=== PATIENT | male | born 1980 | race Caucasian/White ===

== ENCOUNTER 2018-04-09 14:34 | Emergency (ER) | payer OTHER ==
[2018-04-09 14:46] VITALS: TEMP 97.8
[2018-04-09] MEDS ORDERED: HYDROmorphone 1 MG/ML 1 ML SYRINGE IVP STA ×2 (15:02→17:17)
[2018-04-09] MEDS ORDERED: SODIUM CHLORIDE 0.9% 1,000 ML IV STA (15:02)
[2018-04-09] MEDS ORDERED: ONDANSETRON 4 MG/2 ML VIAL IVP STA (15:02)
--- NOTE | 2018-04-09 15:04 | ED ---
General Adult HPI - General Chief complaint: Abdominal Pain Stated complaint: Abd pain Time Seen by Provider: 04/09/18 14:58 Source: patient, RN notes reviewed Mode of arrival: ambulatory Limitations: no limitations - History of Present Illness Initial comments: Patient is a 37-year-old male presenting to the emergency room today with a chief complaint of right upper quadrant abdominal pain over the last few days. He does admit that it is worse after he eats. Patient does admit to a sharp pain located in the right upper quadrant. Patient doesn't feeling nauseated. Denies any vomiting. Patient denies any recent fever, chills, shortness of breath, chest pain, back pain, vomiting, numbness or tingling, headaches or visual changes, or any other complaints. - Related Data Previous Rx's Medication Instructions Recorded Omeprazole 20 mg PO DAILY #20 capsule. 04/09/18 Ondansetron Odt [Zofran ODT] 4 mg PO Q8HR PRN #20 tab 04/09/18 Sucralfate [Carafate] 1 gm PO BID 10 Days tablet 04/09/18 Allergies Allergy/AdvReac Type Severity Reaction Status Date / Time sulfamethoxazole Allergy Unknown Verified 04/09/18 14:46 [From Bactrim] trimethoprim [From Bactrim] Allergy Unknown Verified 04/09/18 14:46 Review of Systems ROS Statement: Those systems with pertinent positive or pertinent negative responses have been documented in the HPI. ROS Other: All systems not noted in ROS Statement are negative. Past Medical History Past Medical History: No Reported History History of Any Multi-Drug Resistant Organisms: None Reported Past Surgical History: Bariatric Surgery Past Psychological History: Anxiety, Depression Smoking Status: Never smoker Past Alcohol Use History: Rare Past Drug Use History: None Reported General Exam - General Exam Comments Initial Comments: General: The patient is awake and alert, in no distress, and does not appear acutely ill. Eye: There is normal conjunctiva bilaterally. No signs of icterus. Ears, nose, mouth and throat: There are moist mucous membranes and no oral lesions. Neck: The neck is supple, there is no tenderness or JVD. Cardiovascular: There is a regular rate and rhythm. No murmur, rub or gallop is appreciated. Respiratory: Lungs are clear to auscultation, respirations are non-labored, breath sounds are equal. No wheezes, stridor, rales, or rhonchi. Gastrointestinal: Abdomen soft on palpation. Patient does have mild tender epigastric with increased tenderness to the right upper quadrant. No rebound, guarding or CVA tenderness. Musculoskeletal: Normal ROM, no tenderness. Neurological: A&O x 3. CN II-XII intact, There are no obvious motor or sensory deficits. Coordination appears grossly intact. Speech is normal. Skin: Skin is warm and dry and no rashes or lesions are noted. Psychiatric: Cooperative, appropriate mood & affect, normal judgment. Limitations: no limitations Course Vital Signs 04/09/18 14:43 Temperature 97.8 F Pulse Rate 104 H Respiratory 18 Rate Blood Pressure 160/90 O2 Sat by Pulse 100 Oximetry Medical Decision Making - Medical Decision Making Patient's labs been reviewed. Patient's ultrasound does show evidence for adenomyomatosis of the gallbladder. No sign for acute cholecystitis. Patient symptoms consistent with biliary colic. Advised following up with general surgeon. Patient will be given Zofran, omeprazole, Carafate for symptoms. He is advised to return if any symptoms increase or worsen. States understanding and is in agreement. - Lab Data Result diagrams: 04/09/18 15:09 04/09/18 15:09 Lab Results 04/09/18 04/09/18 04/09/18 Range/Units 15: 15: 16:34 WBC 7.2 (3.8-10.6) k/uL RBC 5.65 (4.30-5.90) m/uL Hgb 15.9 (13.0-17.5) gm/dL Hct 48.4 (39.0-53.0) % MCV 85.6 (80.0-100.0) fL MCH 28.1 (25.0-35.0) pg MCHC 32.8 (31.0-37.0) g/dL RDW 13.1 (11.5-15.5) % Plt Count 204 (150-450) k/uL Neutrophils % 71 % Lymphocytes % 12 % Monocytes % 11 % Eosinophils % 4 % Basophils % 1 % Neutrophils # 5.1 (1.3-7.7) k/uL Lymphocytes # 0.9 L (1.0-4.8) k/uL Monocytes # 0.8 (0-1.0) k/uL Eosinophils # 0.3 (0-0.7) k/uL Basophils # 0.1 (0-0.2) k/uL Sodium 142 (137-145) mmol/L Potassium 4.2 (3.5-5.1) mmol/L Chloride 108 H (98-107) mmol/L Carbon Dioxide 27 (22-30) mmol/L Anion Gap 7 mmol/L BUN 14 (9-20) mg/dL Creatinine 0.92 (0.66-1.25) mg/dL Est GFR (CKD-EPI)AfAm >90 (>60 ml/min/1.73 sqM) Est GFR (CKD-EPI)NonAf >90 (>60 ml/min/1.73 sqM) Glucose 79 (74-99) mg/dL Calcium 8.7 (8.4-10.2) mg/dL Total Bilirubin 0.5 (0.2-1.3) mg/dL AST 34 (17-59) U/L ALT 38 (21-72) U/L Alkaline Phosphatase 44 (38-126) U/L Total Protein 6.7 (6.3-8.2) g/dL Albumin 3.9 (3.5-5.0) g/dL Amylase 54 (30-110) U/L Lipase 143 (23-300) U/L Urine Color Yellow Urine Appearance Clear (Clear) Urine pH 5.5 (5.0-8.0) Ur Specific [place] 1.011 (1.001-1.035) Urine Protein Negative (Negative) Urine Glucose (UA) Negative (Negative) Urine Ketones Negative (Negative) Urine Blood Negative (Negative) Urine Nitrite Negative (Negative) Urine Bilirubin Negative (Negative) Urine Urobilinogen <2.0 (<2.0) mg/dL Ur Leukocyte Esterase Negative (Negative) Disposition Clinical Impression: Abdominal pain Disposition: HOME SELF-CARE Condition: Good Instructions: Abdominal Pain (ED) Additional Instructions: Please use medication as discussed. Please follow-up with surgeon/family doctor in the next 2 days of symptoms have not improved. Please return to emergency room if the symptoms increase or worsen or for any other concerns. Prescriptions: Omeprazole 20 mg PO DAILY #20 capsule. Ondansetron Odt [Zofran ODT] 4 mg PO Q8HR PRN #20 tab PRN Reason: Nausea Sucralfate [Carafate] 1 gm PO BID 10 Days tablet Is patient prescribed a controlled substance at d/c from ED?: No Referrals: Dinesh Murphy MD [Primary Care Provider] - 1-2 days Kellen Vidal DO [Doctor of Osteopathic Medicine] - 1-2 days Time of Disposition: 17:14
[2018-04-09 15:26] LABS: Basophils # (A) 0.1 k/uL (0-0.2); Basophils % (A) 1 %; Eosinophils # (A) 0.3 k/uL (0-0.7); Eosinophils % (A) 4 %; HCT 48.4 % (39.0-53.0); HGB 15.9 gm/dL (13.0-17.5); Lymphocytes # (A) 0.9 k/uL (1.0-4.8); Lymphocytes % (A) 12 %; MCH 28.1 pg (25.0-35.0); MCHC 32.8 g/dL (31.0-37.0); MCV 85.6 fL (80.0-100.0); Mean Platelet Volume 6.2; Monocytes # (A) 0.8 k/uL (0-1.0); Monocytes % (A) 11 %; Neutrophils # (A) 5.1 k/uL (1.3-7.7); Neutrophils % (A) 71 %; Platelet Count 204 k/uL (150-450); RBC 5.65 m/uL (4.30-5.90); RDW 13.1 % (11.5-15.5); WBC 7.2 k/uL (3.8-10.6)
[2018-04-09 15:36] LABS: ALT 38 U/L (21-72); AST 34 U/L (17-59); Albumin 3.9 g/dL (3.5-5.0); Alkaline Phosphatase 44 U/L (38-126); Amylase 54 U/L (30-110); Anion Gap 7 mmol/L; Blood Urea Nitrogen 14 mg/dL (9-20); Calcium 8.7 mg/dL (8.4-10.2); Carbon Dioxide 27 mmol/L (22-30); Chloride 108 mmol/L (98-107); Glucose 79 mg/dL (74-99); Lipase 143 U/L (23-300); Potassium 4.2 mmol/L (3.5-5.1); Sodium 142 mmol/L (137-145); Total Bilirubin 0.5 mg/dL (0.2-1.3); Total Protein 6.7 g/dL (6.3-8.2)
--- NOTE | 2018-04-09 16:53 | US ---
EXAMINATION TYPE: US abdomen limited DATE OF EXAM: 04/09/2018 COMPARISON: NONE CLINICAL HISTORY: Pain. EXAM MEASUREMENTS: Liver Length: 17.3 cm Gallbladder Wall: 0.9cm cm CBD: 0.5 cm Right Kidney: 11.5 x 5.1 x 6.1 cm Patient 3 hours post prandial and of large body habitus, technically difficult study. Pancreas: Obscured Liver: Increased attenuation, decreased visualization of vessels suggestive of fatty infiltrate Gallbladder: oval hyperechoic foci that appears to be in the wall of the gallbladder, there also rommel ears to be some dependant sludge CBD: wnl Right Kidney: wnl There is no ascites. IMPRESSION: The exam is somewhat limited. Correlate for possible hepatic steatosis. Findings suggesti ve of adenomyomatosis of the gallbladder.
[2018-04-09 16:55] LABS: Appearance,Urine Clear (Clear); Bilirubin,Urine Negative (Negative); Blood,Urine Negative (Negative); Color,Urine Yellow; Glucose,Urine (UA) Negative (Negative); Ketones,Urine Negative (Negative); Leukocyte Esterase,Urine Negative (Negative); Nitrite,Urine Negative (Negative); PH, Urine 5.5 (5.0-8.0); Protein,Urine Negative (Negative); Specific Gravity,Urine 1.011 (1.001-1.035); Urobilinogen,Urine <2.0 mg/dL (<2.0)
[2018-04-09 17:42] VITALS: BP 133/78; PULSE 96; RESP 16
== END 2018-04-09 18:05 | disposition home or self-care (01) ==
LOC: EC 14:34
DX: R10.11 Right upper quadrant pain (principal); K82.8 Other specified diseases of gallbladder; Z88.2 Allergy status to sulfonamides; Z98.84 Bariatric surgery status
CPT/HCPCS: 99284; 96374; 96375; 96376; 96361; 36415; 80053; 82150; 83690; 85025; 81003; 76705; J2405; J1170

== ENCOUNTER 2018-04-14 11:59 | Inpatient (IN) | payer OTHER ==
[2018-04-12 14:54] VITALS: BMI 43.8
[~2018-04-14 11:59] MED LIST: DEXAMETHASONE SOD PHOSPHATE 10 MG/ML 1 ML VIAL IV ONE; HEPARIN SODIUM,PORCINE 5,000 UNIT/ML 1 ML VIAL SQ ONE; LIDOCAINE 1% 20 ML VIAL (10MG/ML) FOR IV START INTRADERMA PRN; MIDAZOLAM (PF) 2 MG/2 ML VIAL IV PRN; ONDANSETRON 4 MG/2 ML VIAL IVP ONE; SCOPOLAMINE 1.5MG/72HR PATCH TRANSDERM ONE
[2018-04-14] MEDS: LACTATED RINGERS 1,000 ML IV SCH (12:38)
[2018-04-14] MEDS ORDERED: GLYCOPYRROLATE 0.2 MG/ML 2 ML VIAL ONE (13:06)
[2018-04-14] MEDS ORDERED: HYDROmorphone (PF) 1 MG/ML ONE (13:06)
[2018-04-14] MEDS ORDERED: LIDOCAINE 1% INJ 10MG/ML (20 ML MDV) ONE (13:06)
[2018-04-14] MEDS ORDERED: fentaNYL (PF) 50 MCG/ML 2 ML AMP ONE (13:06)
[2018-04-14] MEDS ORDERED: PROPOFOL 10 MG/ML 20 ML VIAL IV ONE (13:06)
[2018-04-14] MEDS ORDERED: MIDAZOLAM 2 MG/2 ML VIAL ONE (13:06)
[2018-04-14] MEDS ORDERED: NEOSTIGMINE 1 MG/ML 10 ML VIAL ONE (13:06)
[2018-04-14] MEDS ORDERED: ROCURONIUM BROMIDE 10 MG/ML 10 ML VIAL IV ONE (13:06)
[2018-04-14] MEDS ORDERED: BUPIVACAIN-EPI 0.25%-1:200,000 30 ML VIAL SQ ONE (13:22)
[2018-04-14] MEDS ORDERED: ONDANSETRON 4 MG/2 ML VIAL IVP PRN (14:44)
[2018-04-14] MEDS ORDERED: NALOXONE 0.4 MG/ML 1 ML VIAL IV PRN (14:44)
--- NOTE | 2018-04-14 14:44 | P.OP ---
Date of Procedure: 04/14/18 Preoperative Diagnosis: Cholecystitis Postoperative Diagnosis: Cholecystitis Procedure(s) Performed: Laparoscopic cholecystectomy Anesthesia: DAVID Surgeon: Kellen Vidal Pathology: other (Gallbladder and contents) Condition: stable Disposition: observation Indications for Procedure: 37-year-old male presented to the hospital for an elective laparoscopic cholecystectomy. Risks, benefits and alternatives were provided to the patient. The patient did provide consent prior to attending the operating suite. Operative Findings: Severely inflamed gallbladder Gallstones Description of Procedure: The patient was brought into the operating suite and placed in supine position on the operating table. Sedation was provided by anesthesia and the patient underwent endotracheal patient. The patient was then prepped and draped in regular sterile fashion. A periumbilical incision was made just right of the umbilicus. The abdomen was then entered under direct visualization using a 12 mm Visiport. Pneumoperitoneum was then achieved. 3 additional 5 mm ports were placed. One was placed in the subxiphoid region and 2 were placed in the right upper quadrant. The patient was then placed in appropriate position. It was immediately clear that the gallbladder was noted to be significantly inflamed and had multiple dense adhesions. Careful dissection was carried along the gallbladder to dissect the adhesions and the cystic artery and cystic duct were visualized. Both the cystic duct and cystic artery were skeletonized. 2 clips were placed proximal and the cystic duct, one was placed proximally and the cystic duct was ligated. 2 clips were then placed proximally on the cystic artery and one distally and the cystic artery was then ligated. A Cristhian was then used to dissect the gallbladder from the gallbladder fossa. The gallbladder was then placed in an Endo Catch bag and removed from the abdomen. Copious muss irrigation was then placed up in the right upper quadrant. Hemostasis was noted to be maintained. Due to the severe inflammation, a BINDU drain was placed in the right upper quadrant. The periwound umbilical incision site was then closed under direct visualization using a Cristhian-Sakina device and an 0 Vicryl suture. All other ports were then removed and pneumoperitoneum was released. All skin incisions were then closed with 4-0 Vicryl subcuticular suture.
[2018-04-14] MEDS ORDERED: LACTATED RINGERS 1,000 ML IV ONE (14:46)
[2018-04-14] MEDS: HYDROmorphone 0.5 MG/0.5 ML SYRINGE IVP PRN ×6 (15:05→22:48)
[2018-04-14] MEDS: LACTATED RINGERS 1,000 ML IV ONE ×2 (16:39→18:45)
[2018-04-14] MEDS: HEPARIN SODIUM,PORCINE 5,000 UNIT/ML 1 ML VIAL SQ SCH (16:39)
[2018-04-14] MEDS: HYDROcodone/APAP 5-325MG 1 EACH TAB PO PRN (16:42)
[2018-04-14] MEDS: KETOROLAC 30 MG/ML 1 ML VIAL IVP SCH (22:46)
[2018-04-15] MEDS: HEPARIN SODIUM,PORCINE 5,000 UNIT/ML 1 ML VIAL SQ SCH ×4 (01:23→23:21)
[2018-04-15] MEDS: HYDROmorphone 0.5 MG/0.5 ML SYRINGE IVP PRN ×2 (01:59→08:27)
[2018-04-15] MEDS: HYDROcodone/APAP 5-325MG 1 EACH TAB PO PRN ×3 (07:18→19:41)
[2018-04-15] MEDS: KETOROLAC 30 MG/ML 1 ML VIAL IVP SCH ×4 (07:19→23:21)
[2018-04-15 07:53] LABS: Basophils % (A) 0 %; Eosinophils % (A) 0 %; HGB 15.3 gm/dL (13.0-17.5); Lymphocytes # (A) 0.9 k/uL (1.0-4.8); Lymphocytes % (A) 7 %; MCH 26.9 pg (25.0-35.0); MCHC 31.9 g/dL (31.0-37.0); MCV 84.3 fL (80.0-100.0); Monocytes # (A) 0.8 k/uL (0-1.0); Monocytes % (A) 6 %; Neutrophils # (A) 10.7 k/uL (1.3-7.7); Neutrophils % (A) 85 %; Platelet Count 307 k/uL (150-450); RBC 5.69 m/uL (4.30-5.90); RDW 12.5 % (11.5-15.5); WBC 12.6 k/uL (3.8-10.6)
[2018-04-15 08:05] LABS: ALT 93 U/L (21-72); AST 89 U/L (17-59); Albumin 3.4 g/dL (3.5-5.0); Alkaline Phosphatase 52 U/L (38-126); Anion Gap 6 mmol/L; Blood Urea Nitrogen 13 mg/dL (9-20); Calcium 8.9 mg/dL (8.4-10.2); Carbon Dioxide 28 mmol/L (22-30); Chloride 106 mmol/L (98-107); Glucose 97 mg/dL (74-99); Potassium 4.4 mmol/L (3.5-5.1); Sodium 140 mmol/L (137-145); Total Bilirubin 0.5 mg/dL (0.2-1.3); Total Protein 6.2 g/dL (6.3-8.2)
[2018-04-15] MEDS: LACTATED RINGERS 1,000 ML IV SCH (08:22)
[2018-04-15] MEDS: PANTOPRAZOLE 40 MG/10 ML VIAL IV SCH (08:30)
[2018-04-15] MEDS: HYDROmorphone 4 MG TABLET PO PRN ×4 (11:29→22:31)
--- NOTE | 2018-04-15 11:57 | P.PN ---
Subjective Progress Note Date: 04/15/18 Patient is dong well, complaining of pain. States he is not comfortable to go home considering his pain now. No NV no FC Objective - Vital Signs Vital signs: Vital Signs Temp 98.2 F 04/15/18 07:43 Pulse 100 04/15/18 07:43 Resp 14 04/15/18 07:43 BP 131/84 04/15/18 07:43 Pulse Ox 97 04/15/18 07:43 Intake & Output 04/14/18 04/15/18 04/15/18 18:59 06:59 18:59 Intake Total 1350 Output Total 50 Balance 1300 Weight 127.006 kg Intake: IV 1350 Output: Estimated Blood Loss 50 Other: # Voids 1 - Constitutional General appearance: Present: cooperative - Gastrointestinal Gastrointestinal Comment(s): soft/mild TTP/ No RRG. BINDU serosang - Psychiatric Psychiatric: Present: A&O x's 3 - Labs CBC & Chem 7: 04/15/18 06:55 04/15/18 06:55 Labs: Abnormal Lab Results - Last 24 Hours (Table) 04/15/18 04/15/18 Range/Units 06:55 06:55 WBC 12.6 H (3.8-10.6) k/uL Neutrophils # 10.7 H (1.3-7.7) k/uL Lymphocytes # 0.9 L (1.0-4.8) k/uL AST 89 H (17-59) U/L ALT 93 H (21-72) U/L Total Protein 6.2 L (6.3-8.2) g/dL Albumin 3.4 L (3.5-5.0) g/dL Assessment and Plan Assessment: POD#1 Lap sagrario Plan: Patient is doing well. He may start on low fat diet. He is to ambulate and use his IS. Plan will be for DC home tomorrow
[2018-04-15 19:37] VITALS: RESP 16
[2018-04-16] MEDS: HYDROcodone/APAP 5-325MG 1 EACH TAB PO PRN ×3 (01:13→13:06)
[2018-04-16] MEDS: KETOROLAC 30 MG/ML 1 ML VIAL IVP SCH ×2 (05:31→12:07)
[2018-04-16 08:09] VITALS: BP 135/62; PULSE 97; TEMP 97.8
[2018-04-16] MEDS: HEPARIN SODIUM,PORCINE 5,000 UNIT/ML 1 ML VIAL SQ SCH (08:16)
[2018-04-16] MEDS: LACTATED RINGERS 1,000 ML IV SCH (08:19)
[2018-04-16] MEDS: PANTOPRAZOLE 40 MG/10 ML VIAL IV SCH (10:45)
--- NOTE | 2018-04-16 12:05 | P.PN ---
Subjective Progress Note Date: 04/16/18 Patient doing well no complaints pain improved, asking to go home Objective - Vital Signs Vital signs: Vital Signs Temp 97.8 F 04/16/18 08:09 Pulse 97 04/16/18 08:09 Resp 16 04/16/18 08:09 BP 135/62 04/16/18 08:09 Pulse Ox 96 04/16/18 08:09 Intake & Output 04/15/18 04/16/18 04/16/18 18:59 06:59 18:59 Output Total 30 Balance -30 Output: Drainage 30 Right Abdomen 30 Other: # Voids 2 2 - Constitutional General appearance: Present: cooperative - Respiratory Details: nonlabored - Cardiovascular Rhythm: regular - Gastrointestinal Gastrointestinal Comment(s): s/nd, expected TTP incisional, BINDU serosang - Psychiatric Psychiatric: Present: A&O x's 3 - Labs CBC & Chem 7: 04/15/18 06:55 04/15/18 06:55 Assessment and Plan Assessment: POD#2 Lap sagrario Plan: Patient is doing well.DC home today, BINDU dced. Follow up with Dr. Vidal in 1-2 weeks
[2018-04-17] MEDS ORDERED: PANTOPRAZOLE 40 MG TABLET PO SCH (07:30)
--- NOTE | 2018-04-19 15:16 | CDI ---
Documentation Clarification Form Date: 04/19/2018 3:15:00 PM From: Pat Main Meeta Tripp, [facility] Attendant Hours-8:30 am & 5 pm MRamy Admit Date: 04/15/2018 2:08:00 PM Patient Name: Arjun Mccormack Visit Number: [id number] Discharge Date: 04/16/2018 1:16:00 PM ATTENTION: The Clinical Documentation Specialists (CDI) and [facility] Coding Staff appreciate your assistance in clarifying documentation. Please respond to the clarification below the line at the bottom and electronically sign. The CDI & [facility] Coding staff will review the response and follow-up if needed. Please note: Queries are made part of the Legal Health Record. If you have any questions, please contact the author of this message via ITS. Dr. Kellen Vidal Patient with BMI pf 43.9, s/p gastric sleeve. History/Risk Factors: cholecystitis with lithiasis w recent lap sagrario Clinical Indicators: Patients weight is : 127.006 kg Patients height is: 5 ft 7 in Calculated BMI is 43.9 In order to capture the severity of condition associated with patient BMI of 43.9, a clinical diagnosis needs to be documented by the physician. Please clarify: Overweight Obesity, Class 1 Obesity, Class 2 Extreme (Morbid) (severe) obesity Other, please specify ____ Unable to determine NIH Classification for BMI: Overweight BMI 2529.9 Obesity (Class 1) BMI 3034.9 Obesity (Class 2) BMI 3539.9 Extreme (Morbid) (severe) obesity BMI =>40 This patient is noted to have Morbid Obesity. MTDD
== END 2018-04-16 13:16 | disposition home or self-care (01) | DRG 418 ==
LOC: OR 11:59 → 4SSUR 15:00 → OR 23:54 → 4SSUR 23:54 → OBSVTOIN 04-15 14:08
PROVIDERS: ADMIT Surgery; ATTEND Surgery
PROC: 0FT44ZZ Resection of Gallbladder, Percutaneous Endoscopic Approach (ICD-10-PCS; principal; 2018-04-14 13:30)
DX: K80.10 Calculus of gallbladder with chronic cholecystitis without obstruction (principal); Z68.41 Body mass index [BMI] 40.0-44.9, adult; E66.01 Morbid (severe) obesity due to excess calories; Z98.84 Bariatric surgery status; Z83.3 Family history of diabetes mellitus; Z82.49 Family history of ischemic heart disease and other diseases of the circulatory system; Z80.43 Family history of malignant neoplasm of testis
CPT/HCPCS: 80053; 85025; 88304